=== PATIENT | male | born 1995 | race Hispanic/Latino ===

== ENCOUNTER 2021-10-07 23:36 | Emergency (ER) | payer OTHER, SELFPAY ==
[2021-10-07] MEDS ORDERED: Boostrix 0.5 ML (Tdap) VIAL ONE (23:58)
[2021-10-08] MEDS ORDERED: Lidocaine 1% PF 5 ML VIAL ONE (00:51)
== END 2021-10-08 02:55 | disposition home or self-care (01) ==
LOC: ERS 23:36
DX: S01.412A Laceration without foreign body of left cheek and temporomandibular area, initial encounter (principal); S09.90XA Unspecified injury of head, initial encounter; W22.8XXA Striking against or struck by other objects, initial encounter; Z23 Encounter for immunization
CPT/HCPCS: 12013; 70450; 70486; 90471; 90715

== ENCOUNTER 2023-05-05 14:54 | Emergency (ER) | payer SELFPAY ==
[2023-05-05] MEDS ORDERED: Haloperidol Lactate 5 MG/ML VIAL ONE (16:06)
[2023-05-05 16:22] LABS: #Eosinphils 0.1 thou/uL (0.0-0.7); #Monocytes 0.4 thou/uL (0.11-0.59); #Neutrophils 6.4 thou/uL (1.40-6.50); %Basophils 0.1 % (0.0-1.0); %Eosinophils 0.9 % (0.0-10.0); %Lymphocytes 3.4 % (21.0-51.0); %Neutrophils 90.3 % (42.0-75.0); Hematocrit 44.8 % (42.0-52.0); Hemoglobin 15.5 g/dL (14.0-18.0); Mean Corpuscular HGB CONC 34.6 g/dL (32.0-36.0); Mean Corpuscular Hemoglobin 30.2 pg (27.0-31.0); Mean Corpuscular Volume 87.2 fl (78.0-98.0); Platelet Count 179 10x3/uL (130-400); RBC Distribution Width 12.7 % (11.5-14.5); Red Blood Cell (RBC) Count 5.14 mill/uL (4.70-6.10)
[2023-05-05 16:46] LABS: ALT (SGPT) 18 U/L (8-55); AST (SGOT) 19 U/L (5-34); Albumin 3.7 g/dL (3.5-5.0); Alkaline Phosphatase 103 U/L (40-110); Anion Gap 10 mmol/L (10-20); BUN (Urea Nitrogen) 4 mg/dL (8.9-20.6); Bilirubin, Total 0.8 mg/dL (0.2-1.2); Calc. Creatinine Clearance 0 mL/min (70-130); Calcium 8.6 mg/dL (7.8-10.44); Carbon Dioxide 29 mmol/L (22-29); Chloride 101 mmol/L (98-107); Estimated GFR 129; Globulin 2.5 g/dL (2.4-3.5); Glucose 112 mg/dL (70-105); Lipase 9 U/L (8-78); Magnesium 1.5 mg/dL (1.6-2.6); Protein, Total 6.2 g/dL (6.0-8.3); Sodium 137 mmol/L (136-145)
[2023-05-05] MEDS ORDERED: Magnesium 2 GM/50 ML BAG (IN WATER) ONE (17:06)
[2023-05-05] MEDS ORDERED: Potassium Chloride 20 MEQ TAB ONE (18:22)
== END 2023-05-05 21:09 | disposition home or self-care (01) ==
LOC: ERS 14:54
DX: R11.2 Nausea with vomiting, unspecified (principal); R10.13 Epigastric pain
CPT/HCPCS: 71046; 80053; 83690; 83735; 85025; 93005; 96365; 96375; J1630; J3475

== ENCOUNTER 2023-05-21 11:30 | Inpatient (IN) | payer SELFPAY ==
[~2023-05-21 11:30] MED LIST: Iopamidol-370 76% 500 ML MDV (1 ML CHARGE) ONE
[2023-05-21 15:22] LABS: #Eosinphils 0.3 thou/uL (0.0-0.7); #Monocytes 0.5 thou/uL (0.11-0.59); #Neutrophils 3.8 thou/uL (1.40-6.50); %Basophils 0.5 % (0.0-1.0); %Eosinophils 4.9 % (0.0-10.0); %Lymphocytes 18.9 % (21.0-51.0); %Monocytes 8.8 % (0.0-10.0); Hematocrit 44.5 % (42.0-52.0); Hemoglobin 14.7 g/dL (14.0-18.0); Mean Corpuscular Hemoglobin 29.2 pg (27.0-31.0); Mean Corpuscular Volume 88.5 fl (78.0-98.0); Mean Platelet Volume 10.2 fL (7.4-10.4); Platelet Count 290 10x3/uL (130-400); RBC Distribution Width 12.7 % (11.5-14.5); Red Blood Cell (RBC) Count 5.03 mill/uL (4.70-6.10); White Blood Cell (WBC) Count 5.8 10x3/uL (4.8-10.8)
[2023-05-21] MEDS ORDERED: Ketorolac Tromethamine 30 MG (1 mL) VIAL ONE (15:22)
[2023-05-21] MEDS ORDERED: Cefepime 2 GM VIAL ONE (15:23)
[2023-05-21] MEDS ORDERED: Sodium Chloride 0.9% 100 ML ONE (15:23)
[2023-05-21 15:43] LABS: ALT (SGPT) 27 U/L (8-55); AST (SGOT) 32 U/L (5-34); Albumin 3.3 g/dL (3.5-5.0); Alkaline Phosphatase 163 U/L (40-110); Anion Gap 14 mmol/L (10-20); BUN (Urea Nitrogen) 8 mg/dL (8.9-20.6); Bilirubin, Total 0.5 mg/dL (0.2-1.2); Calc. Creatinine Clearance 0 mL/min (70-130); Calcium 8.3 mg/dL (7.8-10.44); Carbon Dioxide 27 mmol/L (22-29); Chloride 101 mmol/L (98-107); Estimated GFR 134; Globulin 3.7 g/dL (2.4-3.5); Glucose 98 mg/dL (70-105); Potassium 3.7 mmol/L (3.5-5.1); Sodium 138 mmol/L (136-145)
[2023-05-21] MEDS ORDERED: Ondansetron ODT 4 MG TAB SL PRN (16:30)
[2023-05-21] MEDS ORDERED: Acetaminophen 325 MG TAB PO PRN ×2 (16:30→18:38)
[2023-05-21] MEDS ORDERED: Ondansetron PF 4 MG/2 ML Vial IVP PRN ×2 (16:30→18:38)
[2023-05-21] MEDS ORDERED: LevoFLOXacin 750 mg/D5W 150 ml Premix Bag ONE (17:33)
[2023-05-21] MEDS ORDERED: Vancomycin (BATCH) 2 GM in Premix 1 BAG IVPB SCH (18:00)
[2023-05-21 18:29] VITALS: BMI 36.2
[2023-05-21] MEDS ORDERED: Acetaminophen 650 MG Suppository PR PRN (18:38)
[2023-05-21] MEDS ORDERED: Ondansetron ODT 4 MG TAB PO PRN (18:38)
[2023-05-21] MEDS ORDERED: Ipratropium/Albuterol 3 ML NEB NEB PRN (18:43)
[2023-05-21] MEDS ORDERED: Electrolyte Replacement Protocol 1 EACH FS SCH (18:45)
[2023-05-21] MEDS ORDERED: Vancomycin 1 GM in Premix 1 BAG IVPB SCH (21:00)
[2023-05-21] MEDS ORDERED: Famotidine 20 MG TAB PO SCH (21:00)
[2023-05-21] MEDS ORDERED: Famotidine 20 MG TAB ONE (22:04)
[2023-05-21] MEDS ORDERED: Acetaminophen 325 MG TAB ONE (23:22)
[2023-05-22] MEDS ORDERED: Morphine 2 MG/ML VIAL ONE (00:19)
[2023-05-22] MEDS: Morphine 2 MG/ML VIAL SLOW IVP PRN ×4 (00:23→19:42)
[2023-05-22] MEDS ORDERED: Sodium Chloride 0.9% 100 ML ONE (03:42)
[2023-05-22] MEDS ORDERED: Cefepime 2 GM VIAL ONE (03:42)
[2023-05-22] MEDS: Cefepime 2 GM in Sodium Chloride 0.9% 100 ML IVPB SCH ×2 (03:47→16:00)
[2023-05-22 04:44] LABS: Hematocrit 40.5 % (42.0-52.0); Hemoglobin 13.7 g/dL (14.0-18.0); Manual Diff?? YES; Mean Corpuscular HGB CONC 33.8 g/dL (32.0-36.0); Mean Corpuscular Hemoglobin 29.8 pg (27.0-31.0); Platelet Count 267 10x3/uL (130-400); RBC Distribution Width 12.7 % (11.5-14.5)
[2023-05-22] MEDS ORDERED: Vancomycin (BATCH) 2 GM/500 ML BAG ONE (04:52)
[2023-05-22 05:16] LABS: ALT (SGPT) 19 U/L (8-55); AST (SGOT) 25 U/L (5-34); Albumin 3.1 g/dL (3.5-5.0); Alkaline Phosphatase 148 U/L (40-110); Anion Gap 10 mmol/L (10-20); BUN (Urea Nitrogen) 8 mg/dL (8.9-20.6); Bilirubin, Total 0.5 mg/dL (0.2-1.2); Calc. Creatinine Clearance 331 mL/min (70-130); Carbon Dioxide 29 mmol/L (22-29); Chloride 102 mmol/L (98-107); Estimated GFR 139; Glucose 97 mg/dL (70-105); Potassium 3.7 mmol/L (3.5-5.1); Protein, Total 6.1 g/dL (6.0-8.3); Sodium 137 mmol/L (136-145)
[2023-05-22 05:22] LABS: Delete Auto Diff?? YES
[2023-05-22] MEDS: Vancomycin (BATCH) 2 GM in Premix 1 BAG IVPB SCH ×3 (05:26→21:01)
[2023-05-22 06:08] LABS: Band 11 % (5-11); Eosinophils 8 % (0-10); Lymphocytes 16 % (21-51); Monocytes 5 % (0-10); Neutrophil 56 % (42-75); Reactive Lymphocytes 4 % (0-10)
[2023-05-22 06:09] LABS: Platelet Adequacy Comment Appears Adequate
[2023-05-22] MEDS ORDERED: FLU VACC QS2023-24(6MOS UP)/PF 60 MCG/0.5 ML SYRINGE IM ONE (10:15)
[2023-05-22] MEDS: LevoFLOXacin 750 mg/D5W 750 MG in Premix 1 BAG IVPB SCH (17:51)
[2023-05-22 19:59] LABS: Vancomycin, Trough 11.8 ug/mL
[2023-05-22] MEDS: HYDROcodone/Acetaminophen 5/325 mg Tablet PO PRN (22:28)
[2023-05-23] MEDS: Cefepime 2 GM in Sodium Chloride 0.9% 100 ML IVPB SCH ×2 (04:30→17:29)
[2023-05-23 04:42] LABS: #Eosinphils 0.3 thou/uL (0.0-0.7); #Monocytes 0.5 thou/uL (0.11-0.59); #Neutrophils 2.9 thou/uL (1.40-6.50); %Basophils 0.6 % (0.0-1.0); %Eosinophils 6.7 % (0.0-10.0); %Lymphocytes 24.4 % (21.0-51.0); %Monocytes 10.2 % (0.0-10.0); %Neutrophils 57.3 % (42.0-75.0); Hematocrit 38.9 % (42.0-52.0); Hemoglobin 12.7 g/dL (14.0-18.0); Mean Corpuscular HGB CONC 32.6 g/dL (32.0-36.0); Mean Corpuscular Hemoglobin 29.5 pg (27.0-31.0); Mean Corpuscular Volume 90.5 fl (78.0-98.0); Mean Platelet Volume 10.2 fL (7.4-10.4); Platelet Count 302 10x3/uL (130-400); RBC Distribution Width 12.7 % (11.5-14.5); White Blood Cell (WBC) Count 5.1 10x3/uL (4.8-10.8)
[2023-05-23] MEDS: Vancomycin (BATCH) 2 GM in Premix 1 BAG IVPB SCH ×3 (05:06→20:50)
[2023-05-23 05:09] LABS: Anion Gap 10 mmol/L (10-20); BUN (Urea Nitrogen) 7 mg/dL (8.9-20.6); Calc. Creatinine Clearance 299 mL/min (70-130); Calcium 8.4 mg/dL (7.8-10.44); Carbon Dioxide 29 mmol/L (22-29); Chloride 103 mmol/L (98-107); Estimated GFR 134; Glucose 98 mg/dL (70-105); Potassium 3.6 mmol/L (3.5-5.1); Sodium 138 mmol/L (136-145)
[2023-05-23] MEDS ORDERED: CEFAZOLIN 2 GM in Sodium Chloride 0.9% 100 ML IVPB SCH (07:00)
[2023-05-23] MEDS ORDERED: Bupivacaine PF 0.5% 30 ML VIAL ONE (12:57)
[2023-05-23] MEDS ORDERED: CEFAZOLIN 2 GM VIAL ONE (13:39)
[2023-05-23] MEDS ORDERED: Sodium Chloride 0.9% 100 ML ONE (13:39)
[2023-05-23] MEDS ORDERED: Rocuronium Bromide 10 MG/ML (10ML VIAL) ONE (13:42)
[2023-05-23] MEDS ORDERED: fentaNYL PF 100 MCG/2 ML SYRINGE ONE (13:43)
[2023-05-23] MEDS ORDERED: Midazolam HCl 2 mg/2 ml Vial ONE (13:43)
[2023-05-23] MEDS ORDERED: PROPOFOL 20 ML ONE (13:43)
[2023-05-23] MEDS ORDERED: Lidocaine 1% PF 5 ML VIAL ONE (13:59)
[2023-05-23] MEDS ORDERED: Ondansetron PF 4 MG/2 ML Vial ONE (14:24)
[2023-05-23] MEDS ORDERED: Glycopyrrolate 0.2 MG/ML 5 ML SYRINGE ONE (14:24)
[2023-05-23] MEDS ORDERED: Dexamethasone 20 MG/5 ML VIAL ONE (14:24)
[2023-05-23] MEDS ORDERED: NEOSTIGMINE 3 MG/3 ML SYR 3 MG/3 ML SYRINGE ONE (14:24)
[2023-05-23] MEDS ORDERED: Morphine 4 MG/ML VIAL SLOW IVP PRN (15:41)
[2023-05-23] MEDS ORDERED: Ipratropium/Albuterol 3 ML NEB NEB PRN (15:41)
[2023-05-23] MEDS ORDERED: Ondansetron PF 4 MG/2 ML Vial IVP PRN (15:41)
[2023-05-23] MEDS ORDERED: Promethazine HCl 25 MG/ML VIAL IM PRN ×2 (15:41→16:00)
[2023-05-23] MEDS ORDERED: traMADol HCl 50 MG TAB PO PRN (15:41)
[2023-05-23] MEDS ORDERED: Ondansetron HCl/PF 4 MG/2 ML Vial IVP PRN (16:00)
[2023-05-23 16:11] LABS: Pleural Fluid, Protein 4.7 g/dL
[2023-05-23] MEDS ORDERED: fentaNYL 50 mcg/mL 1 mL Vial ONE (16:11)
[2023-05-23] MEDS: Ketorolac Tromethamine 30 MG (1 mL) VIAL IVP SCH ×2 (17:27→23:54)
[2023-05-23] MEDS: Acetaminophen 500 MG TAB PO SCH ×2 (17:28→23:54)
[2023-05-23] MEDS: LevoFLOXacin 750 mg/D5W 750 MG in Premix 1 BAG IVPB SCH (17:29)
[2023-05-23 17:36] LABS: #Eosinphils 0.1 thou/uL (0.0-0.7); #Monocytes 0.3 thou/uL (0.11-0.59); #Neutrophils 7.7 thou/uL (1.40-6.50); %Basophils 0.3 % (0.0-1.0); %Eosinophils 0.7 % (0.0-10.0); %Lymphocytes 8.3 % (21.0-51.0); %Monocytes 2.8 % (0.0-10.0); %Neutrophils 87.2 % (42.0-75.0); Hematocrit 45.4 % (42.0-52.0); Hemoglobin 14.9 g/dL (14.0-18.0); Mean Corpuscular HGB CONC 32.8 g/dL (32.0-36.0); Mean Corpuscular Hemoglobin 29.4 pg (27.0-31.0); Mean Corpuscular Volume 89.5 fl (78.0-98.0); Mean Platelet Volume 9.8 fL (7.4-10.4); Platelet Count 356 10x3/uL (130-400); RBC Distribution Width 12.5 % (11.5-14.5); Red Blood Cell (RBC) Count 5.07 mill/uL (4.70-6.10); White Blood Cell (WBC) Count 8.8 10x3/uL (4.8-10.8)
[2023-05-23 17:59] LABS: Anion Gap 13 mmol/L (10-20); BUN (Urea Nitrogen) 6 mg/dL (8.9-20.6); Calc. Creatinine Clearance 319 mL/min (70-130); Calcium 8.3 mg/dL (7.8-10.44); Carbon Dioxide 25 mmol/L (22-29); Chloride 104 mmol/L (98-107); Estimated GFR 137; Glucose 111 mg/dL (70-105); Magnesium 1.8 mg/dL (1.6-2.6); Phosphorus 2.7 mg/dL (2.3-4.7); Potassium 4.1 mmol/L (3.5-5.1); Sodium 138 mmol/L (136-145)
[2023-05-23 19:31] LABS: Vancomycin, Trough 12.6 ug/mL
[2023-05-23] MEDS: HYDROcodone/Acetaminophen 5/325 mg Tablet PO PRN (20:49)
[2023-05-23] MEDS ORDERED: Magnesium 2 GM/50 ML(in water) 2 GM in Premix 1 BAG IVPB SCH (23:00)
[2023-05-24] MEDS: Vancomycin (BATCH) 2 GM in Premix 1 BAG IVPB SCH ×2 (04:09→13:04)
[2023-05-24] MEDS: Cefepime 2 GM in Sodium Chloride 0.9% 100 ML IVPB SCH ×2 (04:09→15:22)
[2023-05-24] MEDS: Ketorolac Tromethamine 30 MG (1 mL) VIAL IVP SCH ×4 (05:42→21:57)
[2023-05-24] MEDS: Acetaminophen 500 MG TAB PO SCH ×4 (05:43→22:07)
[2023-05-24 06:39] LABS: #Monocytes 0.7 thou/uL (0.11-0.59); #Neutrophils 7.9 thou/uL (1.40-6.50); %Basophils 0.2 % (0.0-1.0); %Eosinophils 0.1 % (0.0-10.0); %Lymphocytes 8.2 % (21.0-51.0); %Monocytes 7.2 % (0.0-10.0); %Neutrophils 83.8 % (42.0-75.0); Hematocrit 42.1 % (42.0-52.0); Hemoglobin 13.9 g/dL (14.0-18.0); Mean Corpuscular Hemoglobin 29.1 pg (27.0-31.0); Mean Corpuscular Volume 88.1 fl (78.0-98.0); Mean Platelet Volume 10.5 fL (7.4-10.4); Platelet Count 376 10x3/uL (130-400); RBC Distribution Width 12.3 % (11.5-14.5); Red Blood Cell (RBC) Count 4.78 mill/uL (4.70-6.10); White Blood Cell (WBC) Count 9.4 10x3/uL (4.8-10.8)
[2023-05-24 07:03] LABS: Anion Gap 13 mmol/L (10-20); BUN (Urea Nitrogen) 7 mg/dL (8.9-20.6); Calc. Creatinine Clearance 363 mL/min (70-130); Calcium 8.5 mg/dL (7.8-10.44); Carbon Dioxide 25 mmol/L (22-29); Chloride 105 mmol/L (98-107); Estimated GFR 143; Glucose 106 mg/dL (70-105); Potassium 4.2 mmol/L (3.5-5.1); Sodium 139 mmol/L (136-145)
[2023-05-24] MEDS: LevoFLOXacin 750 mg/D5W 750 MG in Premix 1 BAG IVPB SCH (17:23)
[2023-05-24] MEDS: HYDROcodone/Acetaminophen 5/325 mg Tablet PO PRN (20:06)
[2023-05-25] MEDS: Acetaminophen 500 MG TAB PO SCH ×4 (04:27→21:43)
[2023-05-25] MEDS: Ketorolac Tromethamine 30 MG (1 mL) VIAL IVP SCH ×4 (04:28→21:43)
[2023-05-25] MEDS: Cefepime 2 GM in Sodium Chloride 0.9% 100 ML IVPB SCH ×2 (04:33→16:39)
[2023-05-25] MEDS ORDERED: Docusate 100 MG CAP PO PRN (12:36)
[2023-05-25] MEDS: LevoFLOXacin 750 mg/D5W 750 MG in Premix 1 BAG IVPB SCH (17:57)
[2023-05-25] MEDS: Enoxaparin 40 MG (0.4 mL) SYRINGE SC SCH (21:44)
[2023-05-26] MEDS: Cefepime 2 GM in Sodium Chloride 0.9% 100 ML IVPB SCH ×2 (05:29→17:04)
[2023-05-26] MEDS: Acetaminophen 500 MG TAB PO SCH ×5 (05:30→21:55)
[2023-05-26] MEDS: Ketorolac Tromethamine 30 MG (1 mL) VIAL IVP SCH ×5 (05:30→21:56)
[2023-05-26 05:54] LABS: #Basophils 0.1 thou/uL (0.0-0.2); #Eosinphils 0.4 thou/uL (0.0-0.7); #Monocytes 0.7 thou/uL (0.11-0.59); #Neutrophils 3.8 thou/uL (1.40-6.50); %Basophils 0.8 % (0.0-1.0); %Eosinophils 6.3 % (0.0-10.0); %Lymphocytes 22.7 % (21.0-51.0); %Monocytes 10.6 % (0.0-10.0); %Neutrophils 57.8 % (42.0-75.0); Hematocrit 37.6 % (42.0-52.0); Hemoglobin 12.2 g/dL (14.0-18.0); Mean Corpuscular HGB CONC 32.4 g/dL (32.0-36.0); Mean Corpuscular Hemoglobin 29.7 pg (27.0-31.0); Mean Corpuscular Volume 91.5 fl (78.0-98.0); Platelet Count 427 10x3/uL (130-400); RBC Distribution Width 12.7 % (11.5-14.5); Red Blood Cell (RBC) Count 4.11 mill/uL (4.70-6.10); White Blood Cell (WBC) Count 6.5 10x3/uL (4.8-10.8)
[2023-05-26 06:12] LABS: Anion Gap 12 mmol/L (10-20); BUN (Urea Nitrogen) 14 mg/dL (8.9-20.6); Calc. Creatinine Clearance 314 mL/min (70-130); Calcium 8.3 mg/dL (7.8-10.44); Carbon Dioxide 29 mmol/L (22-29); Chloride 106 mmol/L (98-107); Estimated GFR 136; Glucose 82 mg/dL (70-105); Potassium 4.1 mmol/L (3.5-5.1); Sodium 143 mmol/L (136-145)
[2023-05-26] MEDS: LevoFLOXacin 750 mg/D5W 750 MG in Premix 1 BAG IVPB SCH (18:28)
[2023-05-26] MEDS: Enoxaparin 40 MG (0.4 mL) SYRINGE SC SCH (21:56)
[2023-05-27] MEDS: Acetaminophen 500 MG TAB PO SCH ×2 (05:08→09:37)
[2023-05-27] MEDS: Cefepime 2 GM in Sodium Chloride 0.9% 100 ML IVPB SCH (05:09)
[2023-05-27] MEDS: Ketorolac Tromethamine 30 MG (1 mL) VIAL IVP SCH ×2 (05:09→09:37)
[2023-05-27 07:50] VITALS: TEMP 98.2
[2023-05-27 07:54] VITALS: BP 118/66
== END 2023-05-27 12:53 | disposition home or self-care (01) | DRG 163 ==
LOC: ERS 11:30 → 2NO 16:09 → ERHOLD 16:09 → 2NO 05-22 10:15
PROVIDERS: ADMIT Hospitalist; ATTEND Internal Medicine
PROC: 0BNM4ZZ Release Bilateral Lungs, Percutaneous Endoscopic Approach (ICD-10-PCS; principal; 2023-05-23)
PROC: 0B968ZZ Drainage of Right Lower Lobe Bronchus, Via Natural or Artificial Opening Endoscopic (ICD-10-PCS; 2023-05-23)
PROC: 0W9930Z Drainage of Right Pleural Cavity with Drainage Device, Percutaneous Approach (ICD-10-PCS; 2023-05-23)
DX: J18.9 Pneumonia, unspecified organism (principal); J86.9 Pyothorax without fistula; J90 Pleural effusion, not elsewhere classified; F12.90 Cannabis use, unspecified, uncomplicated; E66.9 Obesity, unspecified; B95.61 Methicillin susceptible Staphylococcus aureus infection as the cause of diseases classified elsewhere; Z71.6 Tobacco abuse counseling; Z68.36 Body mass index [BMI] 36.0-36.9, adult; Z82.49 Family history of ischemic heart disease and other diseases of the circulatory system; Z83.3 Family history of diabetes mellitus
CPT/HCPCS: 36415; 36416; 71045; 71275; 80048; 80053; 80202; 83605; 83615; 83735; 83986; 84100; 84157; 85025; 87040; 87070; 87076; 87077; 87081; 87102; 87116; 87186; 87205; 87206; 93005; 96361; 96365; 96366; 96367; 96368; 96375; J0692; J1100; J1650; J1885; J1956; J2250; J2272; J2405; J2704; J3010; J3370; J3475; J3490; Q9967; S0020